=== PATIENT | female | born 1990 | race Two or more races ===

== ENCOUNTER 2020-06-10 13:55 | Emergency (ER) | payer OTHER ==
[~2020-06-10] VITALS: Ht 152.4 cm; Wt 62.6 kg
[2020-06-10 14:10] VITALS: BP 142/87
--- NOTE | 2020-06-10 14:49 | NUR ---
GAS DISPENSER: PT TO ROOM FROM LOBBY
--- NOTE | 2020-06-10 15:34 | NUR ---
PROVIDER AT BEDSIDE FOR SUTURES.
[2020-06-10] MEDS ORDERED: NEOSPORIN OINT. PKT 1 PACKET ONE (15:52)
== END 2020-06-10 16:16 | disposition home or self-care (01) ==
LOC: ED 15:30
DX: S61.211A Laceration without foreign body of left index finger without damage to nail, initial encounter (principal); W26.0XXA Contact with knife, initial encounter; Y93.89 Activity, other specified; Y92.89 Other specified places as the place of occurrence of the external cause; Y99.0 Civilian activity done for income or pay
CPT/HCPCS: 12001; 99283

== ENCOUNTER 2020-06-17 14:00 | Emergency (ER) | payer OTHER ==
[~2020-06-17] VITALS: Ht 160 cm; Wt 62.1 kg
[2020-06-17 14:07] VITALS: BP 114/82
--- NOTE | 2020-06-17 14:19 | NUR ---
PT NOTED TO HAVE SUTURES LEFT INDEX FINGER. NO REDNESS OR SWELLING AT SITE
--- NOTE | 2020-06-17 14:52 | NUR ---
AFTER PA REMOVED SUTURES, STERI STRIPS PLACED
[2020-06-17] MEDS ORDERED: HYDROcodone/APAP 5/325 TABLET ONE (15:40)
== END 2020-06-17 15:42 | disposition home or self-care (01) ==
LOC: ED 14:25
DX: S61.210D Laceration without foreign body of right index finger without damage to nail, subsequent encounter (principal); Z48.02 Encounter for removal of sutures; X58.XXXD Exposure to other specified factors, subsequent encounter
CPT/HCPCS: 99281